=== PATIENT | female | born 1970 | race African-American/Black ===

== ENCOUNTER 2021-06-28 04:30 | Inpatient (IN) | payer OTHER ==
[2021-06-27 10:34] VITALS: BMI 43.4
[2021-06-28] MEDS ORDERED: CEFAZOLIN 2 GM in DEXTROSE 5%-WATER - 100 ML IVPB ONE (08:32)
[2021-06-28] MEDS ORDERED: LIDOCAINE HCL/PF 2% SDV 5ML VIAL ONE (12:27)
[2021-06-28] MEDS ORDERED: fentaNYL CITRATE 250 MCG/5 ML VIAL ONE ×2 (12:28→14:51)
[2021-06-28] MEDS ORDERED: MIDAZOLAM HCL 2 MG/2 ML SINGLE DOSE VIAL ONE ×3 (12:28→12:29)
[2021-06-28] MEDS ORDERED: BUPIVACAINE HCL/PF 0.5% (5MG/ML) 10 ML VIAL ONE (12:28)
[2021-06-28] MEDS ORDERED: PROPOFOL 20 ML ONE ×2 (12:28→14:51)
[2021-06-28] MEDS ORDERED: ROCURONIUM BROMIDE 50 MG/5 ML SYRINGE ONE (12:28)
[2021-06-28] MEDS ORDERED: BUPIVACAINE LIPOSOME/PF (EXPAREL) 266 MG/20 ML VIAL ONE (12:28)
[2021-06-28] MEDS ORDERED: ceFAZolin SODIUM 1 GM VIAL IVPB ONE (14:20)
[2021-06-28] MEDS ORDERED: HYDROmorphone HCl 2 MG/ML VIAL ONE (14:34)
[2021-06-28] MEDS ORDERED: ceFAZolin SODIUM 1 GM VIAL ONE (14:42)
[2021-06-28] MEDS ORDERED: LABETALOL HCL 5 MG/1 ML (100MG/20 ML VIAL) ONE (14:42)
[2021-06-28] MEDS ORDERED: DEXAMETHASONE SOD PHOSPHATE 4 MG/1 ML VIAL ONE (14:42)
[2021-06-28] MEDS ORDERED: KETOROLAC TROMETHAMINE 30 MG/1 ML VIAL ONE (14:42)
[2021-06-28] MEDS ORDERED: METOPROLOL TARTRATE 5 MG/5 ML VIAL ONE (15:09)
[2021-06-28] MEDS ORDERED: PROMETHAZINE HCL 25 MG/1 ML VIAL IVPB PRN (15:48)
[2021-06-28] MEDS ORDERED: DEXAMETHASONE SOD PHOSPHATE 4 MG/1 ML VIAL IVPUSH PRN (15:48)
[2021-06-28] MEDS ORDERED: PROMETHAZINE HCL 25 MG/1 ML VIAL IVPUSH PRN (15:48)
[2021-06-28] MEDS ORDERED: ONDANSETRON 4 MG/2 ML VIAL IVPUSH PRN ×2 (15:48)
[2021-06-28] MEDS ORDERED: GLYCOPYRROLATE 0.2 MG/1 ML VIAL ONE (15:53)
[2021-06-28] MEDS ORDERED: NEOSTIGMINE METHYLSULFATE 0.5 MG/ML - 10 ML MDV ONE (15:53)
[2021-06-28] MEDS ORDERED: HYDROmorphone *PCA* 10MG/50ML DISP.SYRIN PCA SCH (16:00)
[2021-06-28] MEDS ORDERED: ACETAMINOPHEN 325 MG TABLET (FP) PO PRN (16:39)
[2021-06-28] MEDS ORDERED: oxyCODONE HCL 5 MG TABLET PO PRN (16:39)
[2021-06-28] MEDS ORDERED: IBUPROFEN 800 MG/8 ML IJ IVPB PRN (16:39)
[2021-06-28] MEDS ORDERED: HYDROmorphone *PCA* 10MG/50ML DISP.SYRIN PCA ONE (18:30)
[2021-06-28] MEDS: LACTATED RINGERS SOLUTION 1,000 ML IV SCH (20:16)
[2021-06-28] MEDS: CEFAZOLIN 2 GM in SODIUM CHLORIDE 100 ML IVPB SCH (21:50)
[2021-06-28] MEDS ORDERED: CEFAZOLIN 2 GM in DEXTROSE 5%-WATER - 100 ML IVPB SCH (22:00)
[2021-06-29] MEDS: CEFAZOLIN 2 GM in SODIUM CHLORIDE 100 ML IVPB SCH (05:06)
[2021-06-29] MEDS: HYDROCHLOROTHIAZIDE 12.5 MG CAPSULE (FP) PO SCH (10:53)
[2021-06-29] MEDS: LOSARTAN POTASSIUM 50 MG TABLET PO SCH (10:53)
[2021-06-29] MEDS ORDERED: oxyCODONE HCL 5 MG TABLET PO PRN (12:40)
[2021-06-29 13:04] LABS: BASO % 0.2 % (0-2.0); HEMATOCRIT 25.8 % (32.4-45.2); HEMOGLOBIN 8.4 GM/dL (10.7-15.3); LYMPH % 8.3 % (8-40); MCH 27.8 pg (25.7-33.7); MCHC 32.6 g/dl (32.0-36.0); MEAN CELL VOLUME 85.2 fl (80-96); MEAN PLT VOLUME 9.1 fl (7.5-11.1); MONO % 11.8 % (3.8-10.2); NEUT % 79.7 % (42.8-82.8); PLATELET COUNT 324 10^3/uL (134-434); RBC 3.03 M/mm3 (3.60-5.2)
[2021-06-29] MEDS: oxyCODONE HCL 5 MG TABLET PO PRN (16:25)
[2021-06-29] MEDS ORDERED: diphenhydrAMINE HCL 25 MG CAPSULE (FP) PO ONE ×2 (17:58)
[2021-06-29] MEDS: LACTATED RINGERS SOLUTION 1,000 ML IV SCH (20:35)
[2021-06-30] MEDS: HYDROCHLOROTHIAZIDE 12.5 MG CAPSULE (FP) PO SCH (09:28)
[2021-06-30] MEDS: LOSARTAN POTASSIUM 50 MG TABLET PO SCH (09:28)
[2021-06-30] MEDS: oxyCODONE HCL 5 MG TABLET PO PRN (09:28)
[2021-06-30 12:36] VITALS: BP 139/77; PULSE 93; TEMP 98.2
== END 2021-06-30 16:38 | disposition home or self-care (01) | DRG 743 ==
LOC: J2C 04:30 → J6S 19:01
PROVIDERS: ADMIT Obstetrics & Gynecology; ATTEND Obstetrics & Gynecology
PROC: 0DNW0ZZ Release Peritoneum, Open Approach (ICD-10-PCS; 2021-06-28)
PROC: 0UT70ZZ Resection of Bilateral Fallopian Tubes, Open Approach (ICD-10-PCS; 2021-06-28)
PROC: 0UT20ZZ Resection of Bilateral Ovaries, Open Approach (ICD-10-PCS; 2021-06-28)
PROC: 0UT90ZL Resection of Uterus, Supracervical, Open Approach (ICD-10-PCS; principal; 2021-06-28 13:30)
DX: D25.9 Leiomyoma of uterus, unspecified (principal); N73.6 Female pelvic peritoneal adhesions (postinfective); N32.89 Other specified disorders of bladder
CPT/HCPCS: 36415; 81025; 85025; 86900; 94760